=== PATIENT | female | born 1950 | race Caucasian/White ===

== ENCOUNTER 2024-08-19 13:31 | Observation (INO) | payer MEDICARE ==
[~2024-08-19] VITALS: Ht 162.6 cm; Wt 81.9 kg
[2024-08-19] VITALS (16 sets, daily range): BP systolic 143–200; BP diastolic 62–158
[~2024-08-19 13:31] MED LIST: ASPIRIN325 MG PO; CRESTOR20 MG PO; DULOXETINE HCL1 POW PO; FISH OIL1000 MG PO; LEVAQUIN750 M1 PO; LISINOP/HCTZ1 TA2 PO; MSM/GLUCOSA1 PO; MULT VITAMIN PO; PLAVIX75 MG PO; VITAMI16 PO; VITAMIN D320 MCG PO; WELLBUTRIN XL300 MG PO; ZITHROMAX500 MG PO
[2024-08-19] MEDS ORDERED: SPIRIVA HANDIH18 MCG (14:18)
[2024-08-19] MEDS ORDERED: MECLIZINE HCL 25 MG/TAB PO ONE (14:30)
[2024-08-19] MEDS ORDERED: LABETALOL HCL 20 MG/ 4 ML CARTRG IV ONE (14:30)
[2024-08-19 14:46] LABS: BASO% 0.4 % (0-3); EOS% 2.2 % (0-8); HEMATOCRIT 46.9 % (37.0-47.0); HEMOGLOBIN 15.6 g/dl (12.0-16.0); IMMATURE GRANULOCYTES 0.1 % (0.0-5.0); LYMPH% 33.1 % (15-41); MEAN CELL VOLUME 94.2 fL CALC (80.0-100.0); MEAN CORPUSCULAR HGB 31.3 pG CALC (26.0-32.0); MEAN CORPUSCULAR HGB CONC 33.3 g/dL CAL (32.0-36.0); NEUT# 4.83 thou/uL (2.00-7.15); NEUT% 54.2 % (42-76); RED BLOOD COUNT 4.98 mill/uL (4.20-5.60); RED CELL DISTRI WIDTH 12.5 % (11.5-15.5)
[2024-08-19 15:51] LABS: ACT PARTIAL THROMBO TIME 26.5 SECONDS (20.0-32.5); PROTHROMBIN TIME 10.4 SECONDS (9.0-12.5)
[2024-08-19 15:53] LABS: ALKALINE PHOSPHATASE 198 u/l (38-126); ANION GAP 10 (6-22 (CALC)); BILIRUBIN, TOTAL 0.4 mg/dL (0.02-1.3); BUN 18 mg/dL (8-23); BUN/CREATININE RATIO 22 (12-20 (CALC)); CARBON DIOXIDE 30 mmol/l (22-30); CHLORIDE 105 mmol/l (95-108); CREATININE 0.8 mg/dL (0.5-1.0); ESTIMATED GFR 77 ML/MIN (>=90 (CALC)); POTASSIUM 3.9 mmol/l (3.5-5.1); SGOT/AST 44 u/l (9-36); SODIUM 141 mmol/l (137-146); TOTAL PROTEIN 6.9 g/dL (6.3-8.2)
[2024-08-19 15:59] LABS: URINE BILIRUBIN - DIPSTICK Negative (NEGATIVE); URINE BLOOD DIPSTICK Negative (NEGATIVE); URINE COLOR Yellow; URINE GLUCOSE - DIPSTICK Negative (NEGATIVE); URINE KETONE Negative (NEGATIVE); URINE LEUK ESTERASE Trace (NEGATIVE); URINE NITRITE - DIPSTICK Negative (Negative); URINE PROTEIN - DIPSTICK Negative (NEG-TRACE); URINE SPECIFIC GRAVITY 1.025; URINE UROBILINOGEN - DIPSTICK 0.2 E.U./dL (0.2)
[2024-08-19] MEDS ORDERED: ASPIRIN 81 MG/TAB PO ONE (16:40)
[2024-08-19] MEDS ORDERED: hydrALAZINE HCL 20 MG/ML VIAL(1 ML) IV ONE (18:25)
[2024-08-19] MEDS ORDERED: LISINOPRIL 20 MG/TAB PO SCH (19:49)
[2024-08-19] MEDS ORDERED: Zaleplon 5 MG/CAP PO PRN (19:50)
[2024-08-19] MEDS ORDERED: ACETAMINOPHEN 325 MG/TAB PO PRN (19:50)
[2024-08-19] MEDS ORDERED: MAGNESIUM HYDROXIDE 30 ML UDC PO PRN (19:50)
[2024-08-19] MEDS ORDERED: amLODIPine BESYLATE 5 MG/TAB PO SCH (21:00)
[2024-08-19] MEDS ORDERED: ENOXAPARIN SODIUM 40 MG/0.4 ML SYR SC SCH (21:00)
[2024-08-20 00:13] VITALS: BP 140/41
[2024-08-20 04:01] VITALS: BP 153/69
[2024-08-20 06:01] LABS: CHOLESTEROL HDL RATIO 2.6 (<4.4 (CALC)); MAGNESIUM 1.8 mg/dL (1.6-2.3)
[2024-08-20 07:19] VITALS: BP 142/54
[2024-08-20] MEDS ORDERED: CLOPIDOGREL BISULFATE 75 MG/TAB TAB PO SCH (09:00)
[2024-08-20] MEDS ORDERED: buPROPion HCL 150 MG TAB SR PO SCH (09:00)
[2024-08-20] MEDS ORDERED: ASPIRIN 325 MG/TAB PO SCH (09:00)
[2024-08-20] MEDS ORDERED: hydroCHLOROthiazide 12.5 MG/CAP PO SCH (09:00)
[2024-08-20] MEDS ORDERED: AMLODIPINE BESYL5 MG PO (10:11)
[2024-08-20 10:43] VITALS: BP 134/73
[2024-08-20 10:45] VITALS: BP 178/79
[2024-08-20] MEDS ORDERED: MECLIZINE25 MG PO (10:57)
[2024-08-20] MEDS ORDERED: MEDDOSEPAK PO (10:57)
== END 2024-08-20 12:15 | disposition home or self-care (01) ==
LOC: ED 13:31 → ED-I 14:30 → ED 18:21 → MS2 18:22
PROVIDERS: Emergency Medicine; ADMIT Internal Medicine; ATTEND Internal Medicine
DX: R07.89 Other chest pain (principal); R42 Dizziness and giddiness; I10 Essential (primary) hypertension; E78.5 Hyperlipidemia, unspecified; F32.A Depression, unspecified; F17.210 Nicotine dependence, cigarettes, uncomplicated; Z95.828 Presence of other vascular implants and grafts
CPT/HCPCS: J0360; J1650